=== PATIENT | female | born 1975 | race Caucasian/White ===

== ENCOUNTER 2016-08-24 02:21 | Emergency (ER) | payer OTHER ==
--- NOTE | 2016-08-24 08:06 | DIAGNOSTIC IMAGING REPORT ---
PROCEDURE: XR HIP 2VW W W/O AP PELVIS-LT INDICATION: PAIN, initial encounter TECHNIQUE: AP view of the pelvis and hips with lateral view of the left hip. COMPARISON: None. FINDINGS: LEFT HIP: No fracture or dislocation. Normal joint space. PELVIS: No suspicious osseous lesions. Soft tissues are unremarkable. IMPRESSION: 1. Negative left hip
--- NOTE | 2016-08-24 08:16 | ED ORDER SUMMARY ---
..... Patient: LIZBETH NEAL OrderSheet [facility] VisitID: [id number] [place] [address] 41y, F Registration Date/Time: 08/24/2016 ORDER SHEET Weight: 63.0 kg (stated) Allergies: Clindamycin HCl, Sulfa Antibiotics, Tramadol HCL GENERAL ORDERS: CT Head w Cont (No) (N/A) Urgent (04:08/24/2016 Piedad Cohen) (Ack 4:23 CHager[facility] ER Media Specialist) (5:33 GUnger) Hip 2V Left w AP Pelvis Urgent (04:08/24/2016 Piedad Cohen) (Ack 4:23 [facility] [facility] Media Specialist) (5:33 GUnger) CBC w Diff Urgent (04:08/24/2016 Piedad Cohen) (Ack 4:23 [facility] Media Specialist) (4:49 JQuivey R.N.) CMP Urgent (04:08/24/2016 Piedad Cohen) (Ack 4:23 [facility] Media Specialist) (4:49 JQuivey R.N.) UA-Culture if indicated Urgent (04:08/24/2016 Piedad Cohen) (Ack 4:23 [place] [facility] Media Specialist) CRP Urgent (04:08/24/2016 Piedad Cohen) (Ack 4:23 [facility] Media Specialist) (4:49 JQuivey R.N.) ESR Urgent (04:08/24/2016 Piedad Cohen) (Ack 4:23 [facility] Media Specialist) (4:49 JQuivey R.N.) Pulse oximeter (04:08/24/2016 Piedad Cohen) (Ack 4:23 [place] [facility] Media Specialist) (4:49 JQuivey R.N.) Urine Urgent (04:08/24/2016 Piedad Cohen) (Ack 4:42 [facility] Media Specialist) MEDICATION ORDERS: IV FLUIDS: Toradol IV 30 mg (NOW) (04:08/24/2016 Piedad Cohen) (4:47 JQuivey R.N.) IV Saline Lock (04:22 08/24/2016 Piedad Cohen) (4:45 Angélica Merlos) ORDER SHEET NOTES: [Electronically signed by Satya Diaz R.N. (19:11 08/25/2016)] [Electronically signed by Naren Michaels Dr. (15:29 09/01/2016)] [Electronically locked/signed by Satya Diaz R.N. (19:11 08/25/2016)]
--- NOTE | 2016-08-24 08:16 | ED NURSING NOTES ---
Clinical Report - Nurses [facility] [address] [place] [address] 08/24/2016 2:23 Patient: LIZBETH NEAL TRIAGE Triage time 02:35. Acuity: LEVEL 3. Chief Complaint: (Sore on head and left buttock pain). 02:46. Alert. SEPSIS SCREEN: Sepsis Screen. Negative (no infection suspected/documented). --02:46 Vladimir Chris R.N. 02:35 08/24/16. BP: 110/61. HR: 96. RR: 16. O2 saturation: 100%. Temp: 97.5 F. Pain level now: 02/10. --02:46 Vladimir Chris R.N. Weight: 63 kg stated. Height/Length: 66.5 inches Per Patient. BMI: 22.1. --02:42 Vladimir Chris R.N. Medications None. --02:39 Vladimir Chris R.N. (Supposed to be taking meds, states hasn't taken for months). --02:46 Vladimir Chris R.N. Allergies Clindamycin HCl.(rash) Sulfa Antibiotics. Tramadol HCL. Definite Severe --02:39 Vladimir Chris R.N. History Arrived by private vehicle. Historian: patient. Accompanied by family. Primary physician (Kristy). Onset. (Open wound since December 2013, pain in buttock for 1 month). ( Patient reports being seen by Dr. Wagner today at [facility] and they wanted to admit her, states she was too busy with her ). Treatment BOWLING FLOOR MANAGER: None. PAST MEDICAL HX: Immunizations: up-to-date. Last normal menstrual period- 2001. The patient is post-menopausal. SOCIAL HX: Never smoker. No alcohol use or drug use. No infectious disease exposure. ABUSE ASSESSMENT: No report of abuse. FALL RISK ASSESSMENT: Fall risk assessment completed. No fall risk identified. NUTRITIONAL RISK ASSESSMENT: The nutritional risk assessment revealed no deficiencies. FUNCTIONAL ASSESSMENT: Functional assessment: no impairments noted. LEARNING NEEDS ASSESSMENT: The learning needs assessment revealed no barriers. SKIN INTEGRITY ASSESSMENT: Skin integrity risk assessment completed. No skin integrity risk identified. --02:46 Vladimir Chris R.N. PROBLEMS: Adenocarcinoma of large intestine. Gastroesophageal Reflux Disease. Tendonitis. Diarrhea. Vulvovaginitis. Costochondritis. Depression. Facial Fracture. Healing Wound. --02:42 Vladimir Chris R.N. ADDITIONAL SURGERIES: Breast reduction. Hand surgery . Hysterectomy. Knee Surgery. Laparoscopy. Leg surgery (tumor removed). --02:42 Vladimir Chris R.N. Interventions ID band on patient. To treatment room. --02:46 Vladimir Chris R.N. PHYSICAL ASSESSMENT <<STRICKEN ENTRY-- 02:46. Ambulatory to room. Patient gowned. GENERAL / NEURO / PSYCH: Alert. Oriented X 4. HEENT: No facial asymmetry noted. Mucous membranes are pink. RESPIRATORY: Respirations not labored. SKIN: Skin intact. Skin is warm and dry. Normal skin turgor. --02:46 Vladimir Chris R.N. --END STRIKE>> Correction --02:47 Vladimir Chris R.N. 02:46. Ambulatory to room. Patient gowned. GENERAL / NEURO / PSYCH: Alert. Oriented X 4. HEENT: No facial asymmetry noted. Mucous membranes are pink. RESPIRATORY: Respirations not labored. SKIN: Skin is warm and dry. Normal skin turgor. ( Open sore on scalp). --02:47 Vladimir Chris R.N. NURSING PROGRESS NOTES 02:46. Head of bed elevated. Two patient identifiers checked. Call light placed in reach. Bed placed in lowest position. Brakes of bed on. Patient ready for evaluation- chart flagged. --02:46 Vladimir Chris R.N. <<STRICKEN ENTRY-- 04:35 08/24/2016 Site #1 started via IV in the right wrist with an 20g angiocath, with aseptic technique and good blood return; one attempt. Blood drawn: rainbow set. Labeled in the presence of the patient and sent to the lab. Saline lock flushed with 10 mL saline. --04:45 Quivey, Vladimir, R.N. --END STRIKE>> Other. --04:47 Vladimir Chris R.N. 04:35 08/24/2016 Site #1 started via IV in the right wrist with an 20g angiocath, with aseptic technique and good blood return; one attempt. Blood drawn: rainbow set. Labeled in the presence of the patient and sent to the lab. Saline lock flushed with 10 mL saline (Patient complained of pain when flushing, site left in place). --04:47 Vladimir Chris R.N. 04:38 08/24/2016 Site #2 started via IV in the right wrist with an 20g angiocath, with aseptic technique and good blood return; one attempt. Saline lock flushed with 10 mL saline. --04:46 Vladimir Chris R.N. 04:44 08/24/2016 Toradol IVP 30 mg given over 2 minute(s) via site #2. Allergies verified and confirmed 5 rights. IV patency established. IV site checked: no pain, redness, or swelling. IV flushed thoroughly pre- and post-medication administration. --04:47 Vladimir Chris R.N. 04:49 Patient advised about the need for urine. --04:49 Vladimir Chris R.N. 04:49 08/24/16. BP: 97/54. HR: 76. RR: 15. O2 saturation: 98% on room air. --04:49 Vladimir Chris R.N. 05:15. Patient transported to radiology and CT by stretcher with tech. --05:19 Vladimir Chris R.NStephen 05:44. Patient returned from radiology and CT. --05:44 Vladimir Chris R.NStephen 05:50 Patient to restroom to provide urine sample. --06:33 Vladimir Chris R.N. 06:10 Maco WILLIAM informed me that he had checked on the urine and that the patient told him that she spilled the sample and is unable to provide more urine now. --06:35 Vladimir Chris R.N. 06:50. The patient is sleeping. RESPIRATORY: No respiratory distress. SKIN: Skin is warm and dry. Skin color within normal limits. --06:51 Vladimir Chris R.N. ( Patient sleeping). --07:25 Satya Diaz R.N. 07:24 08/24/16. BP: 99/54. HR: 71. RR: 18. O2 saturation: 97%. --07:25 Satya Diaz R.N. DISPOSITION / DISCHARGE 08:24 08/24/2016 Site #1 removed upon discharge. Catheter intact. Pressure dressing applied. --08:24 Satya Diaz R.N. 08:24 08/24/2016 Site #2 removed upon discharge. Catheter intact. Pressure dressing applied. --08:24 Satya Diaz R.N. Condition at departure: improved. No learning barriers present. Discharge instructions provided and reviewed with the patient. Reviewed warnings. Reviewed medication(s). Treatments reviewed. Reviewed referrals. Patient verbalized understanding. Written instructions provided in Trinidadian. The patient was discharged home and accompanied by spouse. She left the Emergency Department ambulatory and via private vehicle. Spouse driving. --08:24 Satya Diaz R.N. 08:22 08/24/16. BP: 99/43. HR: 65. RR: 18. O2 saturation: 97%. Temp: 98.4 F. Pain level now 0/10. --08:24 Satya Diaz R.N. 09:20 08/24/16. ( of pt arrived back in room, became irritable because he wasn't there for the discharge instructions, and demanding to have his see a "mental health professional" or "landscape architect and planner". ERMD summoned to talk with him, pt was asked by MD if she had any intentions of hurting herself or others, or any specific mental illness that she wanted addressed, and she shook her head "No" repeatedly to each question by the MD. still didn't seem happy about it, but did agree to leave. They just left the ED now.). --09:20 Petra Mccormick R.N. Locked/Released at 08/25/2016 19:11 by Satya Diaz R.N.
--- NOTE | 2016-08-24 08:16 | ED ORDER SUMMARY ---
..... Patient: LIZBETH NEAL OrderSheet [facility] VisitID: [id number] [place] [address] 41y, F Registration Date/Time: 08/24/2016 ORDER SHEET Weight: 63.0 kg (stated) Allergies: Clindamycin HCl, Sulfa Antibiotics, Tramadol HCL GENERAL ORDERS: CT Head w Cont (No) (N/A) Urgent (04:08/24/2016 Piedad Cohen) (Ack 4:23 [facility] Track Rider) (5:33 GUnger) Hip 2V Left w AP Pelvis Urgent (04:08/24/2016 Piedad Cohen) (Ack 4:23 [facility] Track Rider) (5:33 GUnger) CBC w Diff Urgent (04:08/24/2016 Piedad Cohen) (Ack 4:23 [facility] Track Rider) (4:49 JQuivey R.N.) CMP Urgent (04:08/24/2016 Piedad Cohen) (Ack 4:23 [facility] ER Track Rider) (4:49 JQuivey R.N.) UA-Culture if indicated Urgent (04:08/24/2016 Piedad Cohen) (Ack 4:23 [place] ER Track Rider) CRP Urgent (04:08/24/2016 Piedad Cohen) (Ack 4:23 [facility] ER Track Rider) (4:49 JQuivey R.N.) ESR Urgent (04:08/24/2016 Piedad Cohen) (Ack 4:23 [facility] ER Track Rider) (4:49 JQuivey R.N.) Pulse oximeter (04:08/24/2016 Piedad Cohen) (Ack 4:23 [place] ER Track Rider) (4:49 JQuivey R.N.) Urine Urgent (04:08/24/2016 Piedad Cohen) (Ack 4:42 [facility] ER Track Rider) MEDICATION ORDERS: IV FLUIDS: Toradol IV 30 mg (NOW) (04:08/24/2016 Piedad Cohen) (4:47 JQuivey R.N.) IV Saline Lock (04:22 08/24/2016 Pieadd Cohen) (4:45 Angélica Merlos) ORDER SHEET NOTES: [Electronically signed by Satya Diaz R.N. (19:11 08/25/2016)] [Electronically signed by Naren Michaels Dr. (15:29 09/01/2016)] [Electronically locked/signed by Satya Diaz R.N. (19:11 08/25/2016)]
--- NOTE | 2016-08-24 08:16 | ED CLINICAL REPORT ---
Clinical Report - Physicians/Mid Levels [facility] [address] [place] [address] 08/24/2016 2:23 Patient: LIZBETH NEAL Arrived- By private vehicle. Historian- patient. HISTORY OF PRESENT ILLNESS Chief Complaint: LESION. This started about 2 years ago and is still present (staying the same). It was gradual in onset and has been constant and waxing/waning but is not gone now. It is described as itchy, painful and burning. It has been located on the right lower extremity (hip). It has been located on the scalp. No cause has been identified. No recent medication, insect bite or food exposure. Was not recently exposed to poison henry or poison oak. (Reports having infection that goes down to the bone on the scalp. States she was going to be admitted recently but didn't want to because of her significant other. Reports having unrelated left hip pain. Has been constant, gradual in onset, does not recall what she was diong when it started. Is staying the same, does not radiate, and has never had anything like this before.). Similar symptoms previously: Many times. Recent medical care: The patient was seen recently by a health care provider (outside facility). REVIEW OF SYSTEMS No fever, chills, sore throat or chest pain. All systems otherwise negative, except as recorded above. PAST HISTORY See nurses notes. Tetanus immunization status is up-to-date. Medications: None. Allergies: Clindamycin HCl.(rash) Sulfa Antibiotics. Tramadol HCL. Definite Severe. SOCIAL HISTORY Never smoker. No alcohol use or drug use. No recent travel. Is a local resident. FAMILY HISTORY Negative. ADDITIONAL NOTES The nursing notes have been reviewed. PHYSICAL EXAM Vital Signs: 08/24/2016 02:35 BP: 110/61. HR: 96. RR: 16. O2 saturation: 100%. Temp: 97.5 F. Pain level now: 7/10. Blood pressure normal. Oxygen saturation normal. Appearance: Alert. Oriented X3. No acute distress. (Patient initially sleeping and snoring. Patient is appropriate whenawoken.). Eyes: Pupils equal, round and reactive to light. Conjunctivae and eyelids normal. ENT: Ears normal. Nose normal. Pharynx normal. ( scalp with chronic lesion to the left parietal area. Signs of prior surgery which are well-healed and remote in nature. No active bleeding. No step-offs. No crepitus. Area is nontender. Appear to be chronically excoriated.). CVS: Normal heart rate and rhythm. Heart sounds normal. Respiratory: No respiratory distress. Breath sounds normal. Chest nontender. Abdomen: Nontender. No organomegaly. Skin: Skin warm and dry. Normal skin color. No rash. Normal skin turgor. Extremities: (no tenderness to the inguinal region. No bony abnormalities. No crepitus. No increased pain with log roll or flexion/extension of the hip. Knee is grossly normal on inspection. No crepitus or abnormalities. Pulses are 2+ and symmetrical with the contralateral side at the DP and posterior tibialis arteries. No back tenderness. Patient with otherwise good range of motion.). LABS, X-RAYS, AND EKG Lt Hip X-ray: (PROCEDURE: XR HIP 2VW W W/O AP PELVIS-LT INDICATION: PAIN, initial encounter TECHNIQUE: AP view of the pelvis and hips with lateral view of the left hip. COMPARISON: None. FINDINGS: LEFT HIP: No fracture or dislocation. Normal joint space. PELVIS: No suspicious osseous lesions. Soft tissues are unremarkable. IMPRESSION: 1. Negative left hip). Views: 2 view hip series. Technique: good. The X-rays were independently viewed by me, interpreted by the radiologist and discussed with the radiologist. CT Head: (PROCEDURE: CT HEAD WITH CONTRAST INDICATION: WOUND TO LEFT PARIETAL SCALP TECHNIQUE: 80 ml of Isovue 300 IV and axial scans were obtained with coronal and sagittal re-formations. COMPARISON: Head CT 10/28/2011 FINDINGS: Sulci, ventricular system and brain parenchyma are normal. No intracranial hemorrhage, mass or abnormal enhancement. Left frontal calvarium defect. Visualized sinuses and mastoids are clear. IMPRESSION: 1. Left frontal calvarium defect 2. Otherwise negative head CT). Head CT performed with contrast. The study was independently viewed by me, interpreted by the radiologist and discussed with the radiologist. Laboratory Tests: UA-Culture if indicated: (SHRUTI: 08/24/2016 07:40) ( MsgRcvd 08/24/2016 07:58) Final results Test Result Flag Units (Reference) URINE COLOR YELLOW URINE APPEARANCE SL CLOUDY URINE GLUCOSE NEGATIVE (NEGATIVE) URINE BILIRUBIN NEGATIVE (NEGATIVE) URINE KETONE NEGATIVE (NEGATIVE) URINE SPECIFIC GRAVITY <= 1.005 L (1.010-1.030) URINE PH 6.5 (5.0-8.0) URINE PROTEIN NEGATIVE (NEGATIVE) URINE UROBILINOGEN 0.2 EU/dL (0.2-1.0) URINE NITRITE NEGATIVE (NEGATIVE) URINE BLOOD NEGATIVE (NEGATIVE) URINE LEUK ESTERASE NEGATIVE (NEGATIVE) URINE RBC NONE SEEN rbc/hpf (0-1) URINE WBC NONE SEEN wbc/hpf (0-1) URINE EPITHELIAL CELLS 0-1 EPI/hpf (0-5) URINE BACTERIA TRACE (<1+) (NONE SEEN) URINE COMMENT CULT NOT INDICATED 1+ AMORPHOUSURINE CULTURES ARE SET-UP BASED ON THE FOLLOWING CRITERIA:POSITIVE NITRITEPOSITIVE LEUKOCYTE ESTERASEGREATER THAN 10 WHITE BLOOD CELLSMODERATE (2+) OR GREATER BACTERIA Urine: (SHRUTI: 08/24/2016 07:40) ( [facility] 08/24/2016 07:52) Final results Test Result Flag Units (Reference) URINE NEGATIVE CBC w Diff: (SHRUTI: 08/24/2016 04:35) ( [facility] 08/24/2016 05:03) Final results Test Result Flag Units (Reference) WHITE BLOOD COUNT 4.5 K/uL (4.5-11.5) RED BLOOD COUNT 3.78 L M/uL (4.00-5.20) HEMOGLOBIN 10.6 L gm/dL (12.0-16.0) HEMATOCRIT 32.3 L % (36.0-46.0) MEAN CELL VOLUME 86 fL (80-100) MEAN CORPUSCULAR HGB 28 pg (26-34) MEAN CORPUSCULAR HGB CONC 33 g/dL (31-37) RED CELL DISTRIBUTION WIDTH 12.8 % (11.6-14.8) PLATELET COUNT 208 K/uL (150-400) NEUTROPHIL % 59.9 % (50-75) LYMPH % 23.9 L % (25-40) MONO % 11.4 % (3-14) EOSINOPHIL % 4.3 H % (0-4) BASOPHIL % 0.5 % (0-2) SED RATE WESTERGREN 31 H mm/hr (0-20) CMP: (SHRUTI: 08/24/2016 04:35) ( MsgRcvd 08/24/2016 05:02) Final results Test Result Flag Units (Reference) GLUCOSE 93 mg/dL (70-110) BUN 22 H mg/dL (7-18) CREATININE 0.6 mg/dL (0.6-1.3) Estimated GFR >60 mL/min Estimated GFR- >60 mL/min Note: Persistent reduction over 3 months in eGFR<60 mL/min/1.73 m2 defines CKD. Patients with eGFR values>=60 mL/min/1.73 m2 may also have CKD if evidence ofpersistent proteinuria. Additional information may be foundat www.kidney.org. SODIUM 142 mmol/L (136-145) POTASSIUM 4.2 mmol/L (3.5-5.1) CHLORIDE 107 mmol/L (98-107) CARBON DIOXIDE 28 mmol/L (21-32) CALCIUM 9.5 mg/dL (8.5-10.1) TOTAL PROTEIN 6.8 g/dL (6.4-8.2) ALBUMIN 3.3 g/dL (3.3-5.0) BILIRUBIN, TOTAL 0.2 mg/dL (0.0-1.0) ALKALINE PHOSPHATASE 73 U/L (46-116) AST (SGOT) 21 U/L (15-37) ALT (SGPT) 25 U/L (12-78) C-REACTIVE PROTEIN < 0.2 mg/dL (0.0-0.9) . PROGRESS AND PROCEDURES Course of Care: The patient is a pleasant 41-year-old female with complicated past medical history including osteomyelitis of the skull. No obvious signs of infection at this point in time. Patient appears appropriate and is in no acute distress. No fever. No signs of infection. Patient will be evaluated laboratory studies including CT scan of the head with IV contrast. The patient is agreeable to the treatment and plan. The patient was sleeping and snoring in bed in no acute distress. Patient appears nontoxic. Workup shows patient's to have no significant abnormalities. TheC-reactive protein does not show any signs of acute infectious etiologyfor today's presentation. The patient's sedimentation rate is only slightly elevated and not significantly elevated. Do not feel patient has significant infection based on mild elevation in sedimentation rate. The rest of the patient's laboratory studies are otherwise unremarkable. The CT scan of the head does not show any acute osseous abnormalities that would indicate infection. Patient's alkaline phosphatase is also not elevated. Do not feel that there is significant bone breakdown from an infectious etiology. In light of patient's normal laboratory studies and overall nontoxic appearance as well as normal vital signs, do not feel patient needs to be admitted to the hospital require further emergency department evaluation. I discussion with patient in regards to wound care. The patient's hip also does not show any acute abnormalities. No dislocation. No fracture. And again C-reactive protein is also negative. Do not feel patient has septic joint. I discussion with patient in regards to her workup, diagnosis, home care, follow-up, and return precautions. All questions answered. The patient expressed understanding of these instructions and was agreeable to them. Prior to patient's discharge from the emergency department, the patient's significant other was at bedside. he had inquired about psychiatric diagnoses and psychiatric treatment here in the emergency department. The patient is not suicidal or homicidal. no hallucinations or delusions. Patient is not a danger to self or other people. Had discussion with patient in regards to feeling safe at home. Patient states that she does feel safe at home. Do not feel patient requires consult for psychiatric problems at this time. Because this is during the weekend, we do not have social services director available. Patient encouraged to follow up with her primary care Dr. Disposition: Discharged. Condition: good. CLINICAL IMPRESSION 08/24/2016 02:35 BP: 110/61. HR: 96. RR: 16. O2 saturation: 100%. Temp: 97.5 F. Pain level now: 7/10. Wound check (acute). Blood pressure normal. Oxygen saturation normal. Acute nontraumatic pain in the left lower extremity (hip). acute left hip pain, atraumatic. INSTRUCTIONS Warnings: GENERAL WARNINGS: Return or contact your physician immediately if your condition worsens or changes unexpectedly, if not improving as expected, or if other problems arise. Specifically return if pain, vomiting, bleeding, breathing difficulty or fever. Your Current Medications: CONTINUE TAKING THE FOLLOWING MEDICATIONS: None*. OTC Medications: Acetaminophen (available over the counter): take according to label instructions. Motrin (available over the counter): take according to label instructions. Follow-up: Return to the emergency department as needed. Follow up with your doctor in three days. Reason for referral: recheck today's concerns. Summary of care provided to patient via paper. Screening today revealed the patient's blood pressure to be in the normal range. The patient should follow up with a primary care provider for blood pressure management. Understanding of the discharge instructions verbalized by patient. (Electronically signed by Naren Michaels Dr. 09/01/2016 15:29)
--- NOTE | 2016-08-24 08:35 | DIAGNOSTIC IMAGING REPORT ---
PROCEDURE: CT HEAD WITH CONTRAST INDICATION: WOUND TO LEFT PARIETAL SCALP TECHNIQUE: 80 ml of Isovue 300 IV and axial scans were obtained with coronal and sagittal re-formations. COMPARISON: Head CT 10/28/2011 FINDINGS: Sulci, ventricular system and brain parenchyma are normal. No intracranial hemorrhage, mass or abnormal enhancement. Left frontal calvarium defect. Visualized sinuses and mastoids are clear. IMPRESSION: 1. Left frontal calvarium defect 2. Otherwise negative head CT 3. Preliminary results submitted by Dr. Chavarria, [facility] radiology.
--- NOTE | 2016-09-01 15:30 | ED MED RECONCILIATION SUMMARY ---
Patient: LIZBETH NEAL Medication Reconciliation Report [facility] VisitID: [id number] [address] [place] [address] 41y, F Registration Date/Time: 08/24/2016 Weight: 63.0 kg Height/Length: 60 in. BMI: 22.1 ALLERGIES: Clindamycin HCl, Sulfa Antibiotics, Tramadol HCL The patient's Home Medications are listed below: NONE. The source(s) of the original Home Medication information: Supposed to be taking meds, states hasn't taken for months The following Medications were given to the patient in the Emergency Department: Toradol [IVP] IVP 30 mg, administered: 08/24/2016 4:44:00 AM The following Medications were prescribed to the patient: Acetaminophen (available over the counter): take according to label instructions. -- Naren Michaels Dr. Motrin (available over the counter): take according to label instructions. -- Naren Michaels Dr.
--- NOTE | 2016-09-01 15:30 | ED DISCHARGE INSTRUCTIONS ---
Patient: LIZBETH NEAL General Instructions [facility] VisitID: [id number] [address] [place] [address] 41y, F Registration Date/Time: 08/24/2016 08/24/2016 02:35 BP: 110/61. HR: 96. RR: 16. O2 saturation: 100%. Temp: 97.5 F. Pain level now: 02/10. Wound check (acute). Blood pressure normal. Oxygen saturation normal. Acute nontraumatic pain in the left lower extremity (hip). acute left hip pain, atraumatic. INSTRUCTIONS Warnings: GENERAL WARNINGS: Return or contact your physician immediately if your condition worsens or changes unexpectedly, if not improving as expected, or if other problems arise. Specifically return if pain, vomiting, bleeding, breathing difficulty or fever. Your Current Medications: CONTINUE TAKING THE FOLLOWING MEDICATIONS: None*. OTC Medications: Acetaminophen (available over the counter): take according to label instructions. Motrin (available over the counter): take according to label instructions. Follow-up: Return to the emergency department as needed. Follow up with your doctor in three days. Reason for referral: recheck today's concerns. Summary of care provided to patient via paper. Screening today revealed the patient's blood pressure to be in the normal range. The patient should follow up with a primary care provider for blood pressure management. Understanding of the discharge instructions verbalized by patient. ADDITIONAL INFORMATION Pain, Uncertain Cause [Acute] Pain is the bodys way of calling attention to a problem. Pain can be caused by many conditions - some minor, some serious. In your case, we were not able to find the exact cause for your pain. However, at this time there is no sign of any serious or life-threatening illness causing your pain. Sometimes more tests will be needed to determine the cause. Other times, just allowing more time to pass will either make it clear what the problem is, or the pain will go away by itself. Home Care: You may use acetaminophen (Tylenol) or ibuprofen (Motrin, Advil) to control pain, unless another medicine was prescribed. [NOTE: If you have chronic liver or kidney disease or ever had a stomach ulcer or GI bleeding, talk with your doctor before using these medicines.] Follow Up with your doctor or as advised by our staff. Get Prompt Medical Attention if any of the following occur: Changes in the pattern of your pain Appearance of new symptoms Fever of 100.4F (38C) or higher, or as directed by your healthcare provider Abrasions Abrasions are skin scrapes. Their treatment depends on how large and deep the abrasion is. Home Care: If you were given a bandage, change it once a day. If your bandage sticks to the wound, soak it in warm water until it loosens. Wash the area with soap and water to remove all the cream/ointment. You may do this in a sink, under a tub faucet or shower. Rinse off the soap and pat dry with a clean towel. Reapply cream/ointment according to your doctor's instructions. This will prevent infection and help prevent the bandage from sticking. Cover the wound with a fresh non-stick bandage (Telfa). Repeat steps 1 to 4 daily, or as directed by your doctor. If the bandage becomes wet or dirty, change it as soon as possible. You may use acetaminophen (Tylenol) or ibuprofen (Motrin, Advil) to control pain, unless another pain medicine was prescribed. [ NOTE : If you have chronic liver or kidney disease or ever had a stomach ulcer or GI bleeding, talk with your doctor before using these medicines.] Do not use ibuprofen in children under six months of age. Follow Up with your physician or this facility as directed by our staff. Most skin wounds heal within ten days. However, an infection may occur despite proper treatment. Therefore, look for the early signs of infection listed below. Get Prompt Medical Attention if any of the following occur: Increasing pain in the wound Increasing redness or swelling Pus coming from the wound Fever of 100.4F (38C) or higher, or as directed by your healthcare provider You have been given the following additional information: Pain, Uncertain Cause (Acute) Abrasion (Electronically signed by Naren Michaels Dr. 09/01/2016 15:29)
--- NOTE | 2016-09-01 15:30 | ED MAR SUMMARY ---
..... Medication Administration Record [facility] [address] [place] [address] Patient: LIZBETH NEAL Visit ID: [id number] 41y, F Weight: 63.0 kg Height/Length: 66.5 in BMI: 22.1 ALLERGIES: Clindamycin HCl, Sulfa Antibiotics, Tramadol HCL Given 04:44 08/24/2016 Vladimir Chris RStephenNStephen Medication Administered: TORADOL [IVP], Dose: 30 mg IVP over 2 minute(s), Site: #2 right wrist. Medication Ordered: Toradol IV 30 mg (NOW).
--- NOTE | 2016-09-01 15:30 | ED MED RECONCILIATION SUMMARY ---
Patient: LIZBETH NEAL Medication Reconciliation Report [facility] VisitID: [id number] [address] [place] [address] 41y, F Registration Date/Time: 08/24/2016 Weight: 63.0 kg Height/Length: 60 in. BMI: 22.1 ALLERGIES: Clindamycin HCl, Sulfa Antibiotics, Tramadol HCL The patient's Home Medications are listed below: NONE. The source(s) of the original Home Medication information: Supposed to be taking meds, states hasn't taken for months The following Medications were given to the patient in the Emergency Department: Toradol [IVP] IVP 30 mg, administered: 08/24/2016 4:44:00 AM The following Medications were prescribed to the patient: Acetaminophen (available over the counter): take according to label instructions. -- Naren Michaels Dr. Motrin (available over the counter): take according to label instructions. -- Naren Michaels Dr.
--- NOTE | 2016-09-01 15:30 | ED MAR SUMMARY ---
..... Medication Administration Record [facility] [address] [place] [address] Patient: LIZBETH NEAL Visit ID: [id number] 41y, F Weight: 63.0 kg Height/Length: 66.5 in BMI: 22.1 ALLERGIES: Clindamycin HCl, Sulfa Antibiotics, Tramadol HCL Given 04:44 08/24/2016 Vladimir Chris RStephenNStephen Medication Administered: TORADOL [IVP], Dose: 30 mg IVP over 2 minute(s), Site: #2 right wrist. Medication Ordered: Toradol IV 30 mg (NOW).
== END 2016-08-24 08:30 | disposition home or self-care (01) ==
LOC: ED SRH 02:21
DX: S00.00XD Unspecified superficial injury of scalp, subsequent encounter (principal); M25.552 Pain in left hip; X58.XXXD Exposure to other specified factors, subsequent encounter; Z88.1 Allergy status to other antibiotic agents; Z88.2 Allergy status to sulfonamides; Z88.5 Allergy status to narcotic agent